=== PATIENT | female | born 1975 | race Caucasian/White ===

== ENCOUNTER → 2024-12-19 | Outpatient (CLI) | payer BC, SELFPAY ==
[2024-12-19 10:59] LABS: Collection Type, Urine Clean Catch
[2024-12-19 11:12] LABS: Basophils # (Auto) 0.0 Thou/mm3 (0.0-0.2); Basophils % (Auto) 1 % (0-2.5); Eosinophils # (Auto) 0.1 Thou/mm3 (0.0-0.5); Eosinophils % (Auto) 3 % (0-10); Hematocrit 37.6 % (36.0-46.0); Hemoglobin 12.7 g/dL (12.0-16.0); Immature Granulocytes Auto 0.01 Thou/mm3 (0.00-0.00); Lymphocytes # (Auto) 1.6 Thou/mm3 (1.0-4.8); Lymphocytes % (Auto) 36 % (10-50); Mean Corpuscular HGB Conc 33.8 g/dl (31.0-37.0); Mean Corpuscular Hemoglobin 28.8 pg (25.0-35.0); Mean Corpuscular Volume 85 fL (80-100); Monocytes # (Auto) 0.4 Thou/mm3 (0.0-0.8); Monocytes % (Auto) 8 % (0-12); Neutrophils # (Auto) 2.4 Thou/mm3 (1.8-7.7); Neutrophils % (Auto) 52 % (37-80); Nucleated Red Blood Cell # 0.00 Thou/mm3 (0.00-0.00); Nucleated Red Blood Cell % 0 /100 WBC (0); Platelet Count 265 Thou/mm3 (140-440); RDW Standard Deviation 41.8 fL (36.4-46.3); Red Blood Count 4.41 Miln/mm3 (4.00-5.20); White Blood Count 4.5 Thou/mm3 (3.6-11.0)
[2024-12-19 11:30] LABS: Alanine Aminotransferase 11 U/L (10-49); Albumin, Serum 4.4 gm/dL (3.5-5.0); Albumin/Globulin Ratio 1.7 (1.2-2.2); Alkaline Phosphatase 50 U/L (46-116); Anion Gap 13 (7-16); Aspartate Amino Transferase 17 U/L (0-34); BUN/Creatinine Ratio 16 Ratio (12-20); Bilirubin,Total 2.1 mg/dL (0.3-1.2); Blood Urea Nitrogen 13 mg/dL (9-23); Calcium 9.3 mg/dL (8.3-10.6); Calcium (Corrected) 9.3 mg/dL (8.5-10.1); Carbon Dioxide 27.0 mMol/L (20.0-31.0); Cardiac Risk Estimate 2.1 RATIO (3.7-5.6); Chloride 104 mMol/L (98-107); Cholesterol 176 mg/dL (132-200); Creatinine (Component) 0.8 mg/dL (0.6-1.3); Globulin 2.6 gm/dL (2.3-3.5); Glucose 93 mg/dL (74-106); HDL Cholesterol 82 mg/dL (40-60); LDL Cholesterol,Calculated 81 mg/dL (0-130); Osmolality,Calculated 286 (275-295); Potassium 4.3 mMol/L (3.4-5.1); Sodium 144 mMol/L (136-145); Thyroid Stimulating Hormone 0.68 uIU/mL (0.55-4.78); Total Protein 7.0 gm/dL (5.7-8.2); Triglycerides 65 mg/dL (30-150); eGFR > 60 See Note
[2024-12-19 11:31] LABS: Iron 74 mcg/dL (50-170)
[2024-12-19 11:38] LABS: Vitamin B12 > 2000 pg/mL (211-911); Vitamin D 25 Hydroxy Total 37.5 ng/mL (7.3-40.2)
[2024-12-19 11:44] LABS: Bilirubin,Urine Negative (Negative); Blood,Urine 1+ (Negative); Clarity,Urine Clear (Clear/Hazy); Color,Urine Yellow (Lt Yel-Yel); Culture Indicated,Urine Not Indicated; Glucose, Urine Negative (Negative); Ketones,Urine Negative (Negative); Leukocyte Esterase,Urine Negative (Negative); Nitrite,Urine Negative (Negative); PH,Urine 7.0 (5.0-7.0); Protein,Urine Negative (Neg - Trace); RBC,Urine 5 /hpf (0-3); Specific Gravity,Urine 1.025 (1.001-1.035); Squamous Epithelial Cell,Urine 3 /hpf (0-5); Urobilinogen,Urine 2.0 mg/dL (0.0-1.0); WBC,Urine 2 /hpf (0-5)
[2024-12-19 11:46] LABS: Sperm,Urine Present
== END | disposition home or self-care (01) ==
LOC: COPL 09:53
PROVIDERS: PCP Family Medicine; Referring Provider Nurse Practitioner Family; Visit Provider Nurse Practitioner Family
DX: D51.0 Vitamin B12 deficiency anemia due to intrinsic factor deficiency (principal); G90.A Postural orthostatic tachycardia syndrome [POTS]
CPT/HCPCS: 36415; 80053; 80061; 81001; 82306; 82607; 83540; 84443; 85025

== ENCOUNTER → 2025-01-13 | Outpatient (CLI) | payer BC, SELFPAY ==
[2025-01-13 13:25] LABS: Collection Type, Urine Clean Catch
[2025-01-13 14:07] LABS: Bacteria,Urine Rare; Bilirubin,Urine Negative (Negative); Blood,Urine Trace (Negative); Clarity,Urine Clear (Clear/Hazy); Color,Urine Yellow (Lt Yel-Yel); Glucose, Urine Negative (Negative); Ketones,Urine Negative (Negative); Leukocyte Esterase,Urine Negative (Negative); Nitrite,Urine Negative (Negative); PH,Urine 6.5 (5.0-7.0); Protein,Urine Trace (Neg - Trace); RBC,Urine 7 /hpf (0-3); Specific Gravity,Urine 1.028 (1.001-1.035); Squamous Epithelial Cell,Urine 1 /hpf (0-5); Urobilinogen,Urine Negative mg/dL (0.0-1.0); WBC,Urine 1 /hpf (0-5)
== END | disposition home or self-care (01) ==
LOC: COPL 13:21 → SLDO 13:22
PROVIDERS: PCP Family Medicine; Referring Provider Nurse Practitioner Family; Visit Provider Nurse Practitioner Family
DX: N39.0 Urinary tract infection, site not specified (principal)
CPT/HCPCS: 81001; 87086

== ENCOUNTER → 2025-02-24 | Outpatient (CLI) | payer BC, SELFPAY ==
--- NOTE | 2025-02-24 15:30 | XR_ITS ---
Examination: Retroperitoneal ultrasound, complete Technique: Multiple high resolution grayscale images of the retroperitoneum obtained, including kidneys and bladder. Exam date and time:February 24, 2025 1532 hours INDICATIONS: Microscopic hematuria laboratory examination several weeks ago. FINDINGS: Right kidney 10.1 cm renal cortex 1.1 cm Left kidney 10.4 cm cortex 1.9 cm No hydronephrosis or renal calculi No bladder mass or bladder calculi, bladder prevoid volume 313 postvoid volume 0 cc IMPRESSION: Right renal cortical thinning Mild bilateral renal parenchymal scar formation No hydronephrosis or renal calculi
== END | disposition home or self-care (01) ==
PROVIDERS: PCP Nurse Practitioner Family; Referring Provider Nurse Practitioner Family; Visit Provider Nurse Practitioner Family
DX: N28.89 Other specified disorders of kidney and ureter (principal)
CPT/HCPCS: 76770

== ENCOUNTER → 2025-05-26 | Outpatient (BNVA) | payer BC, SELFPAY | END | disposition home or self-care (01) | PROVIDERS: PCP Family Medicine; Referring Provider Family Medicine; Visit Provider Urology | DX: R31.29 Other microscopic hematuria (principal); G90.A Postural orthostatic tachycardia syndrome [POTS] | CPT/HCPCS: 81003; 99212; G0463 ==